=== PATIENT | female | born 1955 | race Caucasian/White ===

== ENCOUNTER 2018-07-16 12:26 | Inpatient (IN) | payer OTHER ==
[~2018-07-16] VITALS: Ht 165.1 cm; Wt 68.0 kg
[2018-07-16 12:40] VITALS: BP_SYST 138
[2018-07-16 13:21] LABS: EOSINOPHILS # (AUTO) 0.2 K/uL (0.0-0.4); EOSINOPHILS % (AUTO) 4.5 % (0.0-4.0); HEMATOCRIT 38.2 % (36-48); HEMOGLOBIN 12.9 g/dL (12.0-16.0); LYMPHOCYTES # (AUTO) 1.1 K/uL (1.0-5.5); LYMPHOCYTES % (AUTO) 23.3 % (20.5-51.5); MEAN CORPUSCULAR HEMOGLOBIN 30 pg (27-31); MEAN CORPUSCULAR HGB CONC 34 % (32-36); MEAN CORPUSCULAR VOLUME 90 fL (79.0-98.0); MONOCYTES # (AUTO) 0.4 K/uL (0.0-1.0); MONOCYTES % (AUTO) 7.7 % (1.7-9.3); NEUTROPHILS % (AUTO) 63.5 % (40.0-70.0); PLATELET COUNT (AUTO) 270 K/uL (130-430); RED BLOOD CELL COUNT(AUTO) 4.26 MIL/uL (4.2-6.2); RED CELL DISTRIBUTION WIDTH 12.3 % (9.0-15.0); WHITE BLOOD COUNT (AUTO) 4.7 K/uL (4.8-10.8)
[2018-07-16 13:31] LABS: ANION GAP 6 (5-15); CALCIUM 9.2 mg/dL (8.4-11.0); CHLORIDE 106 mmol/L (98-107); CREATININE 0.65 mg/dL (0.55-1.30); GLUCOSE 96 mg/dL (70-99); POTASSIUM 3.9 mmol/L (3.5-5.1); SODIUM SERUM 138 mmol/L (136-145); UREA NITROGEN, BLOOD 12 mg/dL (8-21)
[2018-07-16 13:32] LABS: GFR AFRICAN AMERICAN 119 mL/min (>90)
[2018-07-16 13:35] LABS: ALANINE AMINOTRANSFERASE 19 U/L (12-78); ASPARTATE AMINOTRANSFERASE 13 U/L (10-37); TOTAL BILIRUBIN 0.5 mg/dL (0.0-1.0)
[2018-07-16 13:38] LABS: ALCOHOL, BLOOD < 3 mg/dL (<10)
[2018-07-16] MEDS ORDERED: ASPIRIN 81 MG TAB.CHEW PO ONE (14:00)
[2018-07-16 14:59] VITALS: BP_SYST 121
[2018-07-16] MEDS ORDERED: ACETAMINOPHEN 325 MG TABLET PO PRN (15:00)
[2018-07-16 20:00] VITALS: BP_SYST 108
[2018-07-16 20:20] LABS: THYROID STIMULATING HORMONE 1.42 uIu/mL (0.34-4.82)
[2018-07-17] VITALS: BP_SYST 92
[2018-07-17 07:04] LABS: BASOPHILS # (AUTO) 0.1 K/uL (0.0-0.2); BASOPHILS % (AUTO) 2.2 % (0.0-2.0); EOSINOPHILS # (AUTO) 0.3 K/uL (0.0-0.4); EOSINOPHILS % (AUTO) 8.2 % (0.0-4.0); HEMATOCRIT 38.2 % (36-48); HEMOGLOBIN 12.8 g/dL (12.0-16.0); LYMPHOCYTES # (AUTO) 1.3 K/uL (1.0-5.5); LYMPHOCYTES % (AUTO) 32.4 % (20.5-51.5); MEAN CORPUSCULAR HEMOGLOBIN 30 pg (27-31); MEAN CORPUSCULAR HGB CONC 33 % (32-36); MEAN CORPUSCULAR VOLUME 91 fL (79.0-98.0); MONOCYTES # (AUTO) 0.3 K/uL (0.0-1.0); MONOCYTES % (AUTO) 6.6 % (1.7-9.3); NEUTROPHILS # (AUTO) 2.1 K/uL (1.8-7.7); NEUTROPHILS % (AUTO) 50.6 % (40.0-70.0); PLATELET COUNT (AUTO) 267 K/uL (130-430); RED BLOOD CELL COUNT(AUTO) 4.21 MIL/uL (4.2-6.2); RED CELL DISTRIBUTION WIDTH 12.3 % (9.0-15.0); WHITE BLOOD COUNT (AUTO) 4.1 K/uL (4.8-10.8)
[2018-07-17 07:11] LABS: ALBUMIN 3.5 g/dL (3.4-4.8); CREATININE 0.66 mg/dL (0.55-1.30); TOTAL BILIRUBIN 0.5 mg/dL (0.0-1.0)
[2018-07-17 08:00] VITALS: BP_SYST 120
[2018-07-17 08:01] LABS: CHOLESTEROL 198 mg/dL (<200); HDL CHOLESTEROL 61 mg/dL (>55); LDL CHOLESTEROL 129 mg/dL (<100); TRIGLYCERIDES 105 mg/dL (30-150)
[2018-07-17] MEDS ORDERED: FAMOTIDINE 20 MG TABLET PO SCH (09:00)
[2018-07-17] MEDS ORDERED: LORazepam 2 MG/ML VIAL IM ONE (11:15)
[2018-07-17] MEDS ORDERED: LORazepam 2 MG/ML VIAL ONE (11:18)
[2018-07-17 11:30] VITALS: BP_SYST 108
[2018-07-17 15:26] VITALS: BP_SYST 113
[2018-07-17 20:04] VITALS: BP_SYST 110
[2018-07-18 12:12] LABS: FOLATE (FOLIC ACID) 9.5 ng/mL (>3.0)
== END 2018-07-17 20:45 | disposition home or self-care (01) | DRG 69 ==
LOC: SED 12:26 → STU 14:24
PROVIDERS: ADMIT Internal Medicine; ATTEND Internal Medicine
DX: G45.9 Transient cerebral ischemic attack, unspecified (principal); G82.50 Quadriplegia, unspecified; H61.22 Impacted cerumen, left ear; R56.9 Unspecified convulsions; Z80.6 Family history of leukemia; Z82.0 Family history of epilepsy and other diseases of the nervous system; Z88.8 Allergy status to other drugs, medicaments and biological substances
CPT/HCPCS: 36415; 70450-TC; 70544; 70547; 70551; 71045; 80053; 80061; 82550-TC; 82607; 82746; 83735-TC; 84443-TC; 84484; 85025; 93005; 93306; 95816; 99285; G0482; J2060

== ENCOUNTER 2021-09-03 18:58 | Emergency (ER) | payer OTHER ==
[~2021-09-03] VITALS: Ht 165.1 cm; Wt 72.6 kg
[2021-09-03 19:08] VITALS: BP_SYST 144
--- NOTE | 2021-09-03 19:08 | NUR ---
Patient to ER bed 07 to gown for evaluation. Side rails up.
--- NOTE | 2021-09-03 19:14 | NUR ---
PT ARRIVED TO ER FOR A FALL SHE HAD. PT SLIPPED ON A LEVON TOY AND HURT HER LEFT HAND AND FOOT. 12/18 PAIN. PT IS ABLE TO MOVE THE EXTREMITIES BUT HAS PAIN WHEN MOVED. A&OX4. PT SAYS SHE DELAYED IT DUE TO HER BEING AT A [employer].
--- NOTE | 2021-09-03 19:25 | NUR ---
XR AT BEDSIDE
--- NOTE | 2021-09-03 19:57 | NUR ---
ER at bedside examining patient.
[2021-09-03] MEDS: KETOROLAC TROMETHAMINE 60 MG/2 ML VIAL IM ONE (20:12)
[2021-09-03] MEDS ORDERED: HYDR-3917 PO ×2 (20:36→20:44)
--- NOTE | 2021-09-03 20:39 | NUR ---
SHORT LEG SPLINT PLACED ON PTs LEFT FOOT AND A VELCRO SPLINT PLACED ON LEFT HAND BY BRANDAN COELLO AND MYSELF.
--- NOTE | 2021-09-03 20:56 | NUR ---
Patient given written and verbal discharge instructions and verbalizes understanding. ER MD discussed with patient the results and treatment provided. Patient in stable condition. ID arm band removed. Rx of NORCO given. Patient educated on pain management and to follow up with PMD. Pain Scale 3/10. Opportunity for questions provided and answered. Medication side effect fact sheet provided.
[2021-09-03 20:57] VITALS: BP_SYST 144
== END 2021-09-03 20:56 | disposition home or self-care (01) ==
LOC: SED 18:58
DX: S92.352A Displaced fracture of fifth metatarsal bone, left foot, initial encounter for closed fracture (principal); S63.502A Unspecified sprain of left wrist, initial encounter; W18.39XA Other fall on same level, initial encounter; Y93.89 Activity, other specified; Y92.89 Other specified places as the place of occurrence of the external cause; Y99.8 Other external cause status
CPT/HCPCS: 29125; 29515; 73090; 73110; 73630; 96372; 99284; J1885

== ENCOUNTER 2023-12-13 13:39 | Inpatient (IN) | payer OTHER ==
[~2023-12-13] VITALS: Ht 165.1 cm; Wt 82.6 kg
[~2023-12-13 13:39] MED LIST: HYDR-3917 PO
[2023-12-13 13:42] VITALS: BP_SYST 144; PULSE 97; RESP 18; TEMP 97.1; O2SAT 99
[2023-12-13 14:34] LABS: BILIRUBIN,URINE NEGATIVE (NEGATIVE); BLOOD, URINE 1+ (NEGATIVE); CLARITY/URINE CLEAR (CLEAR); COLOR,URINE YELLOW (YELLOW); GLUCOSE,URINE NEGATIVE (NEGATIVE); KETONES,URINE NEGATIVE (NEGATIVE); LEUKOCYTE ESTERASE ,URINE 1+ (NEGATIVE); NITRITE, URINE NEGATIVE (NEGATIVE); PH,URINE 6.5 (5.0-8.0); PROTEIN URINE NEGATIVE (NEGATIVE); UROBILINOGEN,URINE 0.2 (0.2-1.0)
[2023-12-13 14:40] LABS: BACTERIA,URINE FEW /HPF (None Seen)
[2023-12-13 15:11] LABS: BASOPHILS % (AUTO) 0.9 % (0.0-2.0); EOSINOPHILS # (AUTO) 0.1 K/uL (0.0-0.4); EOSINOPHILS % (AUTO) 3.7 % (0.0-4.0); HEMATOCRIT 35.4 % (36-48); HEMOGLOBIN 12.2 g/dL (12.0-16.0); LYMPHOCYTES # (AUTO) 1.1 K/uL (1.0-5.5); LYMPHOCYTES % (AUTO) 27.2 % (20.5-51.5); MEAN CORPUSCULAR HEMOGLOBIN 30 pg (27-31); MEAN CORPUSCULAR HGB CONC 35 % (32-36); MEAN CORPUSCULAR VOLUME 88 fL (79.0-98.0); MONOCYTES # (AUTO) 0.3 K/uL (0.0-1.0); MONOCYTES % (AUTO) 8.7 % (1.7-9.3); NEUTROPHILS # (AUTO) 2.4 K/uL (1.8-7.7); NEUTROPHILS % (AUTO) 59.5 % (40.0-70.0); PLATELET COUNT (AUTO) 315 K/uL (130-430); RED BLOOD CELL COUNT(AUTO) 4.02 MIL/uL (4.2-6.2); RED CELL DISTRIBUTION WIDTH 13.1 % (9.0-15.0)
[2023-12-13 15:31] LABS: PROTHROMBIN TIME 10.1 SECS (9.5-12.5)
[2023-12-13 15:42] LABS: ANION GAP 8 (5-15); CALCIUM 8.8 mg/dL (8.4-11.0); CARBON DIOXIDE 27 mmol/L (23-29); CHLORIDE 99 mmol/L (98-107); CREATININE 0.67 mg/dL (0.55-1.30); GFR AFRICAN AMERICAN 113 mL/min (>90); GFR NON AFRICAN-AMERICAN 93 mL/min (>90); GLUCOSE 99 mg/dL (74-106); POTASSIUM 4.3 mmol/L (3.5-5.1); SODIUM SERUM 134 mmol/L (136-145); UREA NITROGEN, BLOOD 11 mg/dL (8-21)
[2023-12-13] MEDS: NACL 0.9% 1,000 ML IV ONE (16:00)
[2023-12-13] MEDS: cefTRIAXone 1 GM IVPB PREMIX 50 ML IV ONE (16:30)
[2023-12-13] MEDS: ASPIRIN 325 MG TABLET PO ONE (16:41)
[2023-12-13] MEDS ORDERED: cefTRIAXone 1 GM IVPB PREMIX 50 ML IV ONE (16:58)
[2023-12-13] MEDS: ASPIRIN 81 MG TAB.CHEW PO ONE (21:30)
[2023-12-13 22:35] LABS: ALBUMIN 3.3 g/dL (3.4-4.8); CALCIUM 8.3 mg/dL (8.4-11.0); CREATININE 0.64 mg/dL (0.55-1.30); POTASSIUM 3.3 mmol/L (3.5-5.1); TOTAL BILIRUBIN 0.3 mg/dL (0.0-1.0); TOTAL PROTEIN, SERUM 6.9 g/dL (6.4-8.3)
[2023-12-13 22:43] LABS: THYROID STIMULATING HORMONE 2.38 uIu/mL (0.36-3.74)
[2023-12-13 22:46] LABS: BASOPHILS # (AUTO) 0.1 K/uL (0.0-0.2); BASOPHILS % (AUTO) 1.2 % (0.0-2.0); EOSINOPHILS # (AUTO) 0.2 K/uL (0.0-0.4); EOSINOPHILS % (AUTO) 3.9 % (0.0-4.0); HEMATOCRIT 32.9 % (36-48); HEMOGLOBIN 11.4 g/dL (12.0-16.0); LYMPHOCYTES # (AUTO) 1.2 K/uL (1.0-5.5); LYMPHOCYTES % (AUTO) 26.3 % (20.5-51.5); MEAN CORPUSCULAR HEMOGLOBIN 30 pg (27-31); MEAN CORPUSCULAR HGB CONC 35 % (32-36); MEAN CORPUSCULAR VOLUME 88 fL (79.0-98.0); MONOCYTES # (AUTO) 0.4 K/uL (0.0-1.0); MONOCYTES % (AUTO) 8.1 % (1.7-9.3); NEUTROPHILS # (AUTO) 2.8 K/uL (1.8-7.7); NEUTROPHILS % (AUTO) 60.5 % (40.0-70.0); PLATELET COUNT (AUTO) 300 K/uL (130-430); RED BLOOD CELL COUNT(AUTO) 3.73 MIL/uL (4.2-6.2); RED CELL DISTRIBUTION WIDTH 13.1 % (9.0-15.0); WHITE BLOOD COUNT (AUTO) 4.6 K/uL (4.8-10.8)
[2023-12-14] VITALS (7 sets, daily range): BP systolic 116–132; PULSE 61–69; RESP 16–20; TEMP 97–98.1; O2SAT 96–98
[2023-12-14] MEDS: OXcarbazepine 150 MG TABLET(TRILEPTAL) PO ONE (11:20)
[2023-12-14 12:32] LABS: BARBITURATE, URINE NEGATIVE (NEG <=200); BENZODIAZEPINE, URINE NEGATIVE (NEG <=150); CANNABINOID, URINE NEGATIVE (NEG <=50); COCAINE, URINE NEGATIVE (NEG <=150); METHAMPHETAMINES SCREEN,URINE NEGATIVE (NEG <=500); OPIATE, URINE NEGATIVE (NEG <=100); PHENCYCLIDINE SCREEN,URINE NEGATIVE (NEG <=25); UR TRICYCLIC ANTIDEPRESSANTS NEGATIVE (NEG <=300); URINE AMPHETAMINE NEGATIVE (NEG <=500); URINE METHADONE NEGATIVE (NEG <=200); URINE OXYCODONE SCREEN NEGATIVE (NEG <=100)
[2023-12-14] MEDS ORDERED: PRO40 PO (15:38)
[2023-12-14] MEDS ORDERED: OXCA300T4 PO (15:38)
[2023-12-14] MEDS: OXcarbazepine 150 MG TABLET(TRILEPTAL) PO SCH (21:22)
[2023-12-15 00:53] VITALS: BP_SYST 121; PULSE 65; RESP 16; TEMP 98.5; O2SAT 98
[2023-12-15 08:00] VITALS: BP_SYST 132; PULSE 59; RESP 17; TEMP 96.9; O2SAT 98
[2023-12-15] MEDS: OXcarbazepine 150 MG TABLET(TRILEPTAL) PO SCH (08:38)
[2023-12-15] MEDS ORDERED: OXcarbazepine 150 MG TABLET(TRILEPTAL) PO SCH (09:00)
[2023-12-15 10:06] VITALS: BP_SYST 128; PULSE 62; RESP 17; TEMP 97; O2SAT 98
== END 2023-12-15 10:40 | disposition home or self-care (01) | DRG 92 ==
LOC: SED 13:39 → STU 21:52
PROVIDERS: ADMIT Internal Medicine; ATTEND Internal Medicine
DX: G83.9 Paralytic syndrome, unspecified (principal); I24.89 Other forms of acute ischemic heart disease; Z79.899 Other long term (current) drug therapy
CPT/HCPCS: 36415; 70450-TC; 71045; 80048; 80053; 80307; 81000; 81001; 81015; 84443; 84484; 85025; 85610; 85730; 87040; 87086; 93005; 93306; 96365; 99285; G0378; J0696